=== PATIENT | male | born 1955 | race Caucasian/White ===

== ENCOUNTER 2020-06-24 12:49 | Emergency (ER) | payer MEDICARE, OTHER ==
[~2020-06-24] VITALS: Ht 185.4 cm; Wt 108.0 kg
[~2020-06-24 12:49] MED LIST: FLUT12AE INH; GABA300C10 PO; HYPERLIPIDEMIA; LISI1TAB20 PO; LISI2.5T PO; OXYC-306 PO
--- NOTE | 2020-06-24 13:12 | NUR ---
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 PT DENIES CP, SOB, DIZZINESS, WEAKNESS IN TRIAGE.
[2020-06-24 14:13] LABS: BASOPHILS % (AUTO) 1 % (0-1); EOSINOPHILS % (AUTO) 0 % (1-7); LYMPHOCYTES % (AUTO) 34 % (22-44); MEAN CORPUSCULAR HEMOGLOBIN 30.8 pg (27.5-34.5); MEAN CORPUSCULAR HGB CONC 34.1 g/dL (33.2-36.2); MEAN PLATELET VOLUME 7.7 fL (7.4-10.4); MONOCYTES % (AUTO) 11 % (2-9); NEUTROPHILS % (AUTO) 54 % (42-75); PLATELET COUNT 180 x10^3/uL (130-400); RED BLOOD COUNT 5.28 x10^6/uL (4.38-5.82); RED CELL DISTRIBUTION WIDTH 14.3 % (9.4-14.8)
[2020-06-24 14:21] LABS: ALBUMIN 3.9 g/dL (3.4-5.0); ANION GAP 8 mmol/L (5-15); CALCIUM 8.9 mg/dL (8.5-10.1); CHLORIDE 107 mmol/L (98-107)
[2020-06-24 14:24] LABS: ALANINE AMINOTRANSFERASE 56 U/L (12-78); ALKALINE PHOSPHATASE 54 U/L (45-117); BILIRUBIN,TOTAL 0.7 mg/dL (0.2-1.0); CREATININE 1.24 mg/dL (0.7-1.3); TOTAL PROTEIN 8.3 g/dL (6.4-8.2)
[2020-06-24 14:39] LABS: MD SCAN
--- NOTE | 2020-06-24 16:42 | NUR ---
PT TO ROOM FROM LOBBY
[2020-06-24 16:50] VITALS: BP 136/79
--- NOTE | 2020-06-24 17:02 | NUR ---
PT SITTING UPRIGHT ON GURNEY, NAD, VSS. PT DENIES ANY NEEDS AT THIS TIME. CALL LIGHT AND PERSONAL BELONGINGS WITHIN REACH. ISOLATION PRECAUTIONS IN PLACE. CONTINUOUS PULSE OX AND CARDIAC MONITORING IN PLACE. ERP AT BEDSIDE
--- NOTE | 2020-06-24 17:41 | NUR ---
Patient given discharge instructions and they have confirmed that they understand the instructions. Patient ambulatory with steady gait.
== END 2020-06-24 17:43 | disposition home or self-care (01) ==
LOC: ED 14:31
DX: U07.1 COVID-19 (principal); B34.9 Viral infection, unspecified; J43.9 Emphysema, unspecified
CPT/HCPCS: 36415; 71045; 80053; 85025; 87635; 99284

== ENCOUNTER 2020-06-25 19:57 | Emergency (ER) | payer MEDICARE ==
[~2020-06-25] VITALS: Ht 185.4 cm; Wt 107.3 kg
--- NOTE | 2020-06-25 20:06 | NUR ---
EKG IN TRIAGE
--- NOTE | 2020-06-25 21:00 | NUR ---
pt to room from lobby
--- NOTE | 2020-06-25 21:13 | NUR ---
THIS IS A 64Y M THAT COMES IN TONIGHT FOR N/V/D X15 DAYS PT ALSO REPORTS LOSS OF TASTE. STS HE WAS HERE YESTERDAY AND DID NOT GET FLUIDS AND FEELS HE NEEDS THEM "MY KIDNEYS ARE SHUTTING DOWN IF YOU DON'T GET ME SOME FLUIDS SOON". PT CONNECTED TO ALL MONITORING VSS, JENNIFER SLIGHT TACHYCARDIA AT 103, TEMP 99.6
[2020-06-25] MEDS ORDERED: SODIUM CHLORIDE 0.9% 1,000ML IVBOLUS ONE (21:30)
[2020-06-25] MEDS ORDERED: SODIUM CHLORIDE FLUSH 10ML SYR IVF ONE (21:30)
--- NOTE | 2020-06-25 21:56 | NUR ---
PIV STARTED FLUIDS INFUSING WITHOUT DIFFICULTY
[2020-06-25 22:11] LABS: BASOPHILS % (AUTO) 0 % (0-1); EOSINOPHILS % (AUTO) 0 % (1-7); LYMPHOCYTES % (AUTO) 23 % (22-44); MEAN CORPUSCULAR HEMOGLOBIN 31.2 pg (27.5-34.5); MEAN PLATELET VOLUME 7.9 fL (7.4-10.4); MONOCYTES % (AUTO) 8 % (2-9); NEUTROPHILS % (AUTO) 69 % (42-75); PLATELET COUNT 190 x10^3/uL (130-400); RED BLOOD COUNT 5.18 x10^6/uL (4.38-5.82); RED CELL DISTRIBUTION WIDTH 14.5 % (9.4-14.8)
[2020-06-25 22:13] LABS: MD NO
[2020-06-25 22:19] LABS: ALANINE AMINOTRANSFERASE 52 U/L (12-78); ALBUMIN 3.9 g/dL (3.4-5.0); ANION GAP 7 mmol/L (5-15); CALCIUM 8.3 mg/dL (8.5-10.1); CHLORIDE 105 mmol/L (98-107)
[2020-06-25 22:21] LABS: ALKALINE PHOSPHATASE 53 U/L (45-117); BILIRUBIN,TOTAL 0.7 mg/dL (0.2-1.0); TOTAL PROTEIN 8.1 g/dL (6.4-8.2)
[2020-06-25] MEDS ORDERED: DOXYCYCLINE 100MG TABLET PO ONE (23:00)
[2020-06-25] MEDS ORDERED: DOXYCYCLINE 100MG TABLET ONE (23:13)
[2020-06-25 23:19] VITALS: BP 119/75
== END 2020-06-25 23:23 ==
LOC: ED 23:17
DX: R19.7 Diarrhea, unspecified (principal); B34.9 Viral infection, unspecified; E86.0 Dehydration; R42 Dizziness and giddiness; J43.9 Emphysema, unspecified; I10 Essential (primary) hypertension
CPT/HCPCS: 36415; 71045; 80053; 83605; 85025; 87040; 93005; 96360; 99285; J7030

== ENCOUNTER 2020-07-01 13:13 | Inpatient (IN) | payer MEDICARE ==
[~2020-07-01] VITALS: Ht 182.9 cm; Wt 108.0 kg
[2020-07-01 15:00] LABS: ANION GAP 8 mmol/L (5-15); BASOPHILS % (AUTO) 0 % (0-1); CALCIUM 8.9 mg/dL (8.5-10.1); CHLORIDE 107 mmol/L (98-107); EOSINOPHILS % (AUTO) 0 % (1-7); LYMPHOCYTES % (AUTO) 12 % (22-44); MEAN CORPUSCULAR HEMOGLOBIN 30.9 pg (27.5-34.5); MEAN CORPUSCULAR HGB CONC 34.7 g/dL (33.2-36.2); MONOCYTES % (AUTO) 7 % (2-9); NEUTROPHILS % (AUTO) 81 % (42-75); PLATELET COUNT 302 x10^3/uL (130-400); RED BLOOD COUNT 4.95 x10^6/uL (4.38-5.82); RED CELL DISTRIBUTION WIDTH 14.9 % (9.4-14.8)
--- NOTE | 2020-07-01 15:00 | NUR ---
PER NOA ROMERO 88%-92% IS ACCEPTABLE O2 SATURATION. PT CURRENTLY 88% ON 8L SIMPLE MASK.
[2020-07-01 15:18] LABS: ALANINE AMINOTRANSFERASE 102 U/L (12-78); ALKALINE PHOSPHATASE 57 U/L (45-117); BILIRUBIN,TOTAL 0.8 mg/dL (0.2-1.0); CREATININE 1.53 mg/dL (0.7-1.3); TOTAL PROTEIN 7.8 g/dL (6.4-8.2)
[2020-07-01 15:40] LABS: D-DIMER (DIC) 1.48 ug/mlFEU (0.00-0.52)
[2020-07-01 15:44] LABS: MD SCAN
--- NOTE | 2020-07-01 16:00 | NUR ---
PER PT POSITIVE COVID TEST ON 06/25, REPORTS INCREASED LETHARGY, FATIGUE, DIARRHEA SINCE D/C. PT CURRENTLY SATING 88% ON 8L SIMPLE MASK. PT RESTING ON GURNEY, CARDIAC MONITORING IN PLACE WITH CONT PULSE OX. NAD NOTED, WILL CONTINUE TO MONITORING.
--- NOTE | 2020-07-01 17:01 | NUR ---
PT RESTING ON GURNEY, NO NEEDS AT THIS TIME PER PT. 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 WILL CONTINUE TO MONITOR.
--- NOTE | 2020-07-01 17:13 | NUR ---
PT TO CT VIA [facility].
[2020-07-01] MEDS ORDERED: OMNIPAQUE 350 MG/ML, 100ML BOTTLE ONE (17:42)
[2020-07-01] MEDS ORDERED: ACETAMINOPHEN 325 MG TABLET PO PRN (18:00)
[2020-07-01] MEDS ORDERED: MELATONIN 5 MG TABLET PO PRN (18:00)
[2020-07-01] MEDS ORDERED: POTASSIUM CHLORIDE 40 MEQ in SODIUM CHLORIDE 0.9% 500 ML IV ONE (18:00)
[2020-07-01] MEDS ORDERED: ONDANSETRON 2MG/ML, 2ML IVPush PRN (18:00)
[2020-07-01] MEDS ORDERED: ONDANSETRON ODT 4 MG PO PRN (18:00)
[2020-07-01] MEDS ORDERED: ENOXAPARIN 40 MG/0.4 ML ONE (18:18)
[2020-07-01] MEDS ORDERED: ASCORBIC ACID 500 MG TABLET ONE (18:18)
[2020-07-01] MEDS: ENOXAPARIN 40 MG/0.4 ML SQ SCH (18:23)
[2020-07-01] MEDS: ASCORBIC ACID 500 MG TABLET PO SCH (18:23)
[2020-07-01] MEDS ORDERED: LACTATED RINGERS 1,000 ML IVBOLUS ONE (18:30)
[2020-07-01] MEDS ORDERED: FAMOTIDINE 20 MG TABLET ONE (21:42)
[2020-07-01] MEDS ORDERED: GABAPENTIN 300 MG CAPSULE ONE (21:42)
[2020-07-01] MEDS: GABAPENTIN 300 MG CAPSULE PO SCH (21:45)
[2020-07-01] MEDS: FAMOTIDINE 20 MG TABLET PO SCH (21:45)
--- NOTE | 2020-07-01 22:03 | NUR ---
REPORT TO GINA WILLINGHAM.
--- NOTE | 2020-07-01 22:06 | NUR ---
bedside report from Terri FUENTES, pt care transferred at this time. Pt nad, resting on gurney, satting at 89% at this time, oxy mask increased from 6 to 8lpm at this time, O2 sat now in the low 90s. Pt denies additional needs, gurney in lowest, call light on lap, WCTM. waiting for admit bed.
[2020-07-01] MEDS ORDERED: LISI5TAB7 PO (22:10)
--- NOTE | 2020-07-01 23:06 | NUR ---
report called to Zully FUENTES, pt care to be transferred upon arrival to floor. pt nad, resting on gurney, appears comfortable, call light on lap, bed in lowest. [email or web address].
[2020-07-02 00:10] VITALS: BP 99/61
[2020-07-02] MEDS: LACTATED RINGERS 1,000 ML IV SCH ×4 (00:17→20:20)
[2020-07-02 06:47] VITALS: BP 122/82
[2020-07-02] MEDS: GABAPENTIN 300 MG CAPSULE PO SCH ×3 (09:36→20:21)
[2020-07-02] MEDS: ASCORBIC ACID 500 MG TABLET PO SCH ×2 (09:37→15:43)
[2020-07-02] MEDS: ZINC SULFATE 220 MG CAPSULE PO SCH (09:37)
[2020-07-02] MEDS: THIAMINE 100MG TABLET PO SCH (09:37)
[2020-07-02] MEDS: CHOLECALCIFEROL 5,000u TAB PO SCH (09:37)
[2020-07-02] MEDS: FAMOTIDINE 20 MG TABLET PO SCH ×2 (09:37→20:20)
[2020-07-02] MEDS: DEXAMETHASONE 4 MG/ML, 1ML IVPush SCH (09:38)
[2020-07-02 11:04] LABS: BASOPHILS % (AUTO) 0 % (0-1); EOSINOPHILS % (AUTO) 0 % (1-7); LYMPHOCYTES % (AUTO) 11 % (22-44); MEAN CORPUSCULAR HEMOGLOBIN 30.6 pg (27.5-34.5); MEAN CORPUSCULAR HGB CONC 34.3 g/dL (33.2-36.2); MONOCYTES % (AUTO) 6 % (2-9); NEUTROPHILS % (AUTO) 83 % (42-75); PLATELET COUNT 286 x10^3/uL (130-400); RED BLOOD COUNT 4.62 x10^6/uL (4.38-5.82); RED CELL DISTRIBUTION WIDTH 14.9 % (9.4-14.8)
[2020-07-02 11:08] LABS: MD NO
[2020-07-02 11:19] LABS: ALBUMIN 2.7 g/dL (3.4-5.0); ANION GAP 10 mmol/L (5-15); CALCIUM 8.7 mg/dL (8.5-10.1); CHLORIDE 113 mmol/L (98-107)
[2020-07-02 11:28] LABS: ALANINE AMINOTRANSFERASE 101 U/L (12-78); ALKALINE PHOSPHATASE 65 U/L (45-117); BILIRUBIN,TOTAL 0.9 mg/dL (0.2-1.0); CREATININE 1.12 mg/dL (0.7-1.3); TOTAL PROTEIN 7.2 g/dL (6.4-8.2)
[2020-07-02 13:41] VITALS: BP 117/76
[2020-07-02] MEDS: FLUTICASONE FUROATE 100MCG/INH INH SCH (15:42)
[2020-07-02] MEDS ORDERED: REMDESIVIR 200 MG in SODIUM CHLORIDE 0.9% 250 ML IVPB ONE (16:30)
[2020-07-02] MEDS: ENOXAPARIN 40 MG/0.4 ML SQ SCH (18:00)
[2020-07-02 19:40] VITALS: BP 127/75
[2020-07-03 00:33] VITALS: BP 134/85
[2020-07-03] MEDS: LACTATED RINGERS 1,000 ML IV SCH ×3 (03:34→20:15)
[2020-07-03 06:15] LABS: BASOPHILS % (AUTO) 0 % (0-1); EOSINOPHILS % (AUTO) 0 % (1-7); LYMPHOCYTES % (AUTO) 17 % (22-44); MEAN CORPUSCULAR HEMOGLOBIN 30.7 pg (27.5-34.5); MEAN CORPUSCULAR HGB CONC 34.6 g/dL (33.2-36.2); MEAN PLATELET VOLUME 8.4 fL (7.4-10.4); MONOCYTES % (AUTO) 11 % (2-9); NEUTROPHILS % (AUTO) 72 % (42-75); PLATELET COUNT 287 x10^3/uL (130-400); RED BLOOD COUNT 4.31 x10^6/uL (4.38-5.82); RED CELL DISTRIBUTION WIDTH 14.7 % (9.4-14.8)
[2020-07-03 06:16] LABS: MD NO
[2020-07-03 06:26] LABS: ALBUMIN 2.5 g/dL (3.4-5.0); ANION GAP 9 mmol/L (5-15); CHLORIDE 114 mmol/L (98-107)
[2020-07-03 06:39] LABS: ALANINE AMINOTRANSFERASE 177 U/L (12-78); ALKALINE PHOSPHATASE 86 U/L (45-117); BILIRUBIN,TOTAL 0.5 mg/dL (0.2-1.0); CREATININE 0.84 mg/dL (0.7-1.3); TOTAL PROTEIN 6.6 g/dL (6.4-8.2)
[2020-07-03 08:28] VITALS: BP 106/75
[2020-07-03] MEDS: GABAPENTIN 300 MG CAPSULE PO SCH ×3 (09:39→20:14)
[2020-07-03] MEDS: FAMOTIDINE 20 MG TABLET PO SCH ×2 (09:39→20:14)
[2020-07-03] MEDS: DEXAMETHASONE 4 MG/ML, 1ML IVPush SCH (09:40)
[2020-07-03] MEDS: CHOLECALCIFEROL 5,000u TAB PO SCH (09:40)
[2020-07-03] MEDS: ASCORBIC ACID 500 MG TABLET PO SCH ×2 (09:40→17:23)
[2020-07-03] MEDS: ZINC SULFATE 220 MG CAPSULE PO SCH (09:40)
[2020-07-03] MEDS: THIAMINE 100MG TABLET PO SCH (09:40)
[2020-07-03] MEDS: FLUTICASONE FUROATE 100MCG/INH INH SCH (09:41)
[2020-07-03] MEDS: ENOXAPARIN 40 MG/0.4 ML SQ SCH (17:24)
[2020-07-03] MEDS: REMDESIVIR 100 MG in SODIUM CHLORIDE 0.9% 250 ML IVPB SCH (17:34)
[2020-07-03 18:33] VITALS: BP 115/58
[2020-07-03 18:44] VITALS: BP 114/71
[2020-07-04 00:44] VITALS: BP 116/69
[2020-07-04 01:42] VITALS: BP 121/73
[2020-07-04 05:21] LABS: BASOPHILS % (AUTO) 0 % (0-1); EOSINOPHILS % (AUTO) 0 % (1-7); LYMPHOCYTES % (AUTO) 16 % (22-44); MEAN CORPUSCULAR HEMOGLOBIN 31.1 pg (27.5-34.5); MEAN CORPUSCULAR HGB CONC 34.7 g/dL (33.2-36.2); MEAN PLATELET VOLUME 8.2 fL (7.4-10.4); MONOCYTES % (AUTO) 8 % (2-9); NEUTROPHILS % (AUTO) 76 % (42-75); PLATELET COUNT 306 x10^3/uL (130-400); RED BLOOD COUNT 4.19 x10^6/uL (4.38-5.82); RED CELL DISTRIBUTION WIDTH 14.3 % (9.4-14.8)
[2020-07-04 05:24] LABS: MD NO
[2020-07-04 05:35] LABS: ALBUMIN 2.3 g/dL (3.4-5.0); ANION GAP 8 mmol/L (5-15); CALCIUM 8.6 mg/dL (8.5-10.1); CHLORIDE 114 mmol/L (98-107)
[2020-07-04 05:40] LABS: CREATININE 0.85 mg/dL (0.7-1.3)
[2020-07-04 05:41] LABS: ALANINE AMINOTRANSFERASE 162 U/L (12-78); ALKALINE PHOSPHATASE 78 U/L (45-117); BILIRUBIN,TOTAL 0.5 mg/dL (0.2-1.0); TOTAL PROTEIN 6.2 g/dL (6.4-8.2)
[2020-07-04] MEDS: LACTATED RINGERS 1,000 ML IV SCH (06:03)
[2020-07-04] MEDS: ZINC SULFATE 220 MG CAPSULE PO SCH (08:15)
[2020-07-04] MEDS: CHOLECALCIFEROL 5,000u TAB PO SCH (08:15)
[2020-07-04] MEDS: GABAPENTIN 300 MG CAPSULE PO SCH ×3 (08:15→20:22)
[2020-07-04] MEDS: ASCORBIC ACID 500 MG TABLET PO SCH ×2 (08:16→18:05)
[2020-07-04] MEDS: FAMOTIDINE 20 MG TABLET PO SCH ×2 (08:16→20:22)
[2020-07-04] MEDS: THIAMINE 100MG TABLET PO SCH (08:16)
[2020-07-04] MEDS: DEXAMETHASONE 4 MG/ML, 1ML IVPush SCH (08:17)
[2020-07-04 09:07] VITALS: BP 110/69
[2020-07-04] MEDS: FLUTICASONE FUROATE 100MCG/INH INH SCH (09:14)
[2020-07-04 13:39] VITALS: BP 121/71
[2020-07-04] MEDS: POTASSIUM CHLORIDE 40 MEQ in SODIUM CHLORIDE 0.9% 500 ML IV ONE ×2 (15:41→16:32)
[2020-07-04] MEDS ORDERED: POTASSIUM CHLORIDE 20 MEQ TAB.ER.PRT PO ONE (17:30)
[2020-07-04] MEDS: ENOXAPARIN 40 MG/0.4 ML SQ SCH (18:05)
[2020-07-04] MEDS: REMDESIVIR 100 MG in SODIUM CHLORIDE 0.9% 250 ML IVPB SCH (18:14)
[2020-07-04 18:53] VITALS: BP 134/74
[2020-07-05 01:00] VITALS: BP 133/82
[2020-07-05 06:37] LABS: BASOPHILS % (AUTO) 0 % (0-1); EOSINOPHILS % (AUTO) 0 % (1-7); LYMPHOCYTES % (AUTO) 18 % (22-44); MD NO; MEAN CORPUSCULAR HEMOGLOBIN 30.7 pg (27.5-34.5); MEAN CORPUSCULAR HGB CONC 34.1 g/dL (33.2-36.2); MEAN PLATELET VOLUME 8.5 fL (7.4-10.4); MONOCYTES % (AUTO) 9 % (2-9); NEUTROPHILS % (AUTO) 73 % (42-75); PLATELET COUNT 338 x10^3/uL (130-400); RED BLOOD COUNT 4.18 x10^6/uL (4.38-5.82); RED CELL DISTRIBUTION WIDTH 14.6 % (9.4-14.8)
[2020-07-05 06:50] LABS: CALCIUM 8.7 mg/dL (8.5-10.1); CHLORIDE 117 mmol/L (98-107)
[2020-07-05 06:56] LABS: ALANINE AMINOTRANSFERASE 138 U/L (12-78); ALBUMIN 2.4 g/dL (3.4-5.0); ALKALINE PHOSPHATASE 79 U/L (45-117); ANION GAP 7 mmol/L (5-15); BILIRUBIN,TOTAL 0.6 mg/dL (0.2-1.0); CREATININE 0.89 mg/dL (0.7-1.3); TOTAL PROTEIN 6.3 g/dL (6.4-8.2)
[2020-07-05] MEDS: DEXAMETHASONE 4 MG/ML, 1ML IVPush SCH (07:40)
[2020-07-05] MEDS: THIAMINE 100MG TABLET PO SCH (07:40)
[2020-07-05] MEDS: CHOLECALCIFEROL 5,000u TAB PO SCH (07:40)
[2020-07-05] MEDS: ASCORBIC ACID 500 MG TABLET PO SCH ×2 (07:40→17:06)
[2020-07-05] MEDS: ZINC SULFATE 220 MG CAPSULE PO SCH (07:40)
[2020-07-05] MEDS: FAMOTIDINE 20 MG TABLET PO SCH ×2 (07:41→20:15)
[2020-07-05] MEDS: GABAPENTIN 300 MG CAPSULE PO SCH ×3 (07:41→20:15)
[2020-07-05 07:51] VITALS: BP 143/77
[2020-07-05] MEDS: FLUTICASONE FUROATE 100MCG/INH INH SCH (09:00)
[2020-07-05 14:39] VITALS: BP 147/86
[2020-07-05] MEDS: REMDESIVIR 100 MG in SODIUM CHLORIDE 0.9% 250 ML IVPB SCH (17:06)
[2020-07-05] MEDS: ENOXAPARIN 40 MG/0.4 ML SQ SCH (17:06)
[2020-07-05 18:59] VITALS: BP 126/76
[2020-07-06 00:42] VITALS: BP 140/79
[2020-07-06 05:57] LABS: ALANINE AMINOTRANSFERASE 127 U/L (12-78); ALBUMIN 2.3 g/dL (3.4-5.0); ANION GAP 5 mmol/L (5-15); CALCIUM 8.3 mg/dL (8.5-10.1); CHLORIDE 115 mmol/L (98-107); CREATININE 0.72 mg/dL (0.7-1.3)
[2020-07-06 05:59] LABS: ALKALINE PHOSPHATASE 69 U/L (45-117); BILIRUBIN,TOTAL 0.6 mg/dL (0.2-1.0); TOTAL PROTEIN 6.1 g/dL (6.4-8.2)
[2020-07-06 07:04] VITALS: BP 146/89
[2020-07-06] MEDS: CHOLECALCIFEROL 5,000u TAB PO SCH (08:58)
[2020-07-06] MEDS: ASCORBIC ACID 500 MG TABLET PO SCH ×2 (08:58→17:14)
[2020-07-06] MEDS: FAMOTIDINE 20 MG TABLET PO SCH ×2 (08:58→20:29)
[2020-07-06] MEDS: GABAPENTIN 300 MG CAPSULE PO SCH ×3 (08:58→20:29)
[2020-07-06] MEDS: THIAMINE 100MG TABLET PO SCH (08:58)
[2020-07-06] MEDS: ZINC SULFATE 220 MG CAPSULE PO SCH (08:58)
[2020-07-06] MEDS: DEXAMETHASONE 4 MG/ML, 1ML IVPush SCH (08:58)
[2020-07-06] MEDS: FLUTICASONE FUROATE 100MCG/INH INH SCH (08:59)
[2020-07-06 12:17] VITALS: BP_SYST 112; BP_SYST 128; BP_DIAS 68; BP_DIAS 70
[2020-07-06] MEDS: ENOXAPARIN 40 MG/0.4 ML SQ SCH (17:14)
[2020-07-06] MEDS: REMDESIVIR 100 MG in SODIUM CHLORIDE 0.9% 250 ML IVPB SCH (17:14)
[2020-07-06 18:45] VITALS: BP 138/81
[2020-07-07 00:28] VITALS: BP 146/79
[2020-07-07 06:47] VITALS: BP 137/81
[2020-07-07] MEDS: FAMOTIDINE 20 MG TABLET PO SCH ×2 (08:10→20:31)
[2020-07-07] MEDS: THIAMINE 100MG TABLET PO SCH (08:11)
[2020-07-07] MEDS: CHOLECALCIFEROL 5,000u TAB PO SCH (08:11)
[2020-07-07] MEDS: ZINC SULFATE 220 MG CAPSULE PO SCH (08:11)
[2020-07-07] MEDS: ASCORBIC ACID 500 MG TABLET PO SCH ×2 (08:12→17:26)
[2020-07-07] MEDS: FLUTICASONE FUROATE 100MCG/INH INH SCH (08:12)
[2020-07-07] MEDS: GABAPENTIN 300 MG CAPSULE PO SCH ×3 (08:12→20:31)
[2020-07-07] MEDS: DEXAMETHASONE 4 MG/ML, 1ML IVPush SCH (08:12)
[2020-07-07 13:50] VITALS: BP 128/75
[2020-07-07] MEDS: ENOXAPARIN 40 MG/0.4 ML SQ SCH (17:25)
[2020-07-07 19:18] VITALS: BP 148/76
[2020-07-08 02:01] VITALS: BP 161/85
[2020-07-08 06:46] VITALS: BP 149/86
[2020-07-08] MEDS: FLUTICASONE FUROATE 100MCG/INH INH SCH (09:00)
[2020-07-08] MEDS: ZINC SULFATE 220 MG CAPSULE PO SCH (10:11)
[2020-07-08] MEDS: CHOLECALCIFEROL 5,000u TAB PO SCH (10:11)
[2020-07-08] MEDS: ASCORBIC ACID 500 MG TABLET PO SCH ×2 (10:11→17:25)
[2020-07-08] MEDS: THIAMINE 100MG TABLET PO SCH (10:11)
[2020-07-08] MEDS: GABAPENTIN 300 MG CAPSULE PO SCH ×2 (10:11→17:25)
[2020-07-08] MEDS: FAMOTIDINE 20 MG TABLET PO SCH (10:12)
[2020-07-08] MEDS: DEXAMETHASONE 4 MG/ML, 1ML IVPush SCH (10:18)
[2020-07-08] MEDS ORDERED: ASCO500T9 PO (13:03)
[2020-07-08] MEDS ORDERED: CHOL500045 PO (13:03)
[2020-07-08] MEDS ORDERED: THIA100T67 PO (13:03)
[2020-07-08] MEDS ORDERED: ZINC220C7 PO (13:03)
[2020-07-08] MEDS: ENOXAPARIN 40 MG/0.4 ML SQ SCH (17:25)
== END 2020-07-08 20:56 | disposition home health service (06) | DRG 871 ==
LOC: ED 15:25 → EDIP 16:04 → 4EST 23:57
PROVIDERS: ADMIT Family Medicine; ATTEND Family Medicine
PROC: XW033E5 Introduction of Remdesivir Anti-infective into Peripheral Vein, Percutaneous Approach, New Technology Group 5 (ICD-10-PCS; principal; 2020-07-02)
DX: A41.89 Other specified sepsis (principal); U07.1 COVID-19; J96.01 Acute respiratory failure with hypoxia; J12.89 Other viral pneumonia; N17.9 Acute kidney failure, unspecified; E87.6 Hypokalemia; I10 Essential (primary) hypertension; J43.9 Emphysema, unspecified
CPT/HCPCS: 36415; 71045; 71275; 80053; 82728; 83605; 83615; 83735; 84100; 84145; 85025; 85049; 85379; 85384; 85610; 85730; 86140; 87040; 93005; 96374; 99285; G0378; J1100; J1650; J3480; Q9967; J7040; J7050; J7120